=== PATIENT | male | born 1955 | race Caucasian/White ===

== ENCOUNTER 2017-03-16 00:03 | Emergency (ER) | payer OTHER ==
[~2017-03-16 00:03] MED LIST: AMLO10 PO; ASPI81TA82 PO; CLON-481 PO; CLOP75 PO; EXEN5PEN SQ; LABE100T2 PO; LISI40TA PO; PAXI20TA26 PO; PREV30CA36 PO; ROSU20 PO
--- NOTE | 2017-03-16 00:24 | PD ---
HPI Chief Complaint: Code Blue Time Seen by Provider: 00:10 Travel History International Travel<30 days: No Contact w/Intl Traveler<30days: No Traveled to known affect area: No History of Present Illness HPI The patient is a 61-year-old male who presents to the emergency department via EMS as a CODE BLUE. According to EMS the patient's was at home, her the patient's CPAP machine alarming and noticed that the patient was not breathing. She called fire rescue and they arrived the patient was in pulseless otological activity. EMS states the patient's downtime has been between 35-40 minutes. The patient's initial rhythm was PA and he has been in PA despite CPR and 4 rounds of epinephrine and one round of sodium bicarbonate prior to arrival. They did intubate the patient in the field with a 7.5 endotracheal tube. Upon arrival the patient is being bagged via bag valve ventilation and endotracheal tube, has no pulse, and is not responding to verbal commands or withdrawing to pain. PFSH Past Medical History Arthritis: No Asthma: No Heart Rhythm Problems: No Cardiovascular Problems: Yes High Cholesterol: Yes Chest Pain: No Congestive Heart Failure: No COPD: No Cerebrovascular Accident: Yes (new dx this visit) Diabetes: Yes GERD: Yes (prevacid) Genitourinary: No Hiatal Hernia: No Kidney Stones: No Musculoskeletal: No Neurologic: Yes Reproductive: No Respiratory: No Migraines: No Myocardial Infarction: Yes Renal Failure: No Seizures: No Sleep Apnea: Yes (wears c-pap @ home) Ulcer: No Social History Alcohol Use: Yes (2X/WK) Tobacco Use: No Substance Use: No Allergies-Medications (Allergen,Severity, Reaction): Coded Allergies: metformin (Unverified Allergy, Severe, Rash, 11/06/16) Reported Meds & Prescriptions Reported Meds & Active Scripts Active Reported Plavix (Clopidogrel Bisulfate) 75 Mg Tab 75 Mg PO DAILY [place]etta 5 Mcg/Dose Prefilled Pen (Exenatide) 5 Mcg/0.02 Ml Inj 5 Mcg SQ BIDAC FOR SUBCUTANEOUS INJECTION Aspir-81 (Aspirin) 81 Mg Tab 81 Mg PO DAILY Paxil (Paroxetine HCl) 20 Mg Tab 20 Mg PO BID Prinivil (Lisinopril) 40 Mg Tab 40 Mg PO DAILY Norvasc (Amlodipine Besylate) 10 Mg Tab 10 Mg PO BID Crestor (Rosuvastatin Calcium) 20 Mg Tab 20 Mg PO DAILY Prevacid (Lansoprazole) 30 Mg Capcr 30 Mg PO DAILY Catapres (Clonidine HCl) 0.3 Mg Tab 0.3 Mg PO BID Labetalol Hcl (Labetalol HCl) 100 Mg Tab 100 Mg PO BID Review of Systems ROS Limitations: Clinical Condition, Intubated Except as stated in HPI: all other systems reviewed are Neg Physical Exam Exam Limitations: Clinical Condition Narrative GENERAL: 61-year-old male who is intubated, nonverbal, with no spontaneous respirations. No pulse. SKIN: Focused skin assessment: To the touch. HEAD: Atraumatic. Normocephalic. EYES: Pupils are 5 mm bilateral and fixed. Nonreactive. ENT: Endotracheal tube in place 7.5. Nasal trumpet in the left near. NECK: Trachea midline. No JVD. CARDIOVASCULAR: No pulse noted. RESPIRATORY: Bilateral breath sounds via bag valve ventilation via endotracheal tube. GASTROINTESTINAL: Abdomen soft, slightly distended. MUSCULOSKELETAL: No obvious deformities. No clubbing. No cyanosis. No edema. I in the right lower extremity. NEUROLOGICAL: GCS of 3 and intubated. PSYCHIATRIC: Unable to obtain. MDM Medical Decision Making Medical Screen Exam Complete: Yes Emergency Medical Condition: Yes Medical Record Reviewed: Yes Differential Diagnosis Differential diagnosis includes cardiopulmonary arrest, hyperkalemia, hypokalemia, hypoglycemia, hypothermia, cardiac tamponade, tension pneumothorax , pulmonary embolism. Narrative Course Upon arrival ACLS protocol was followed. CPR was instituted and the patient was administered 1 more milligram of epinephrine via IO. The patient was placed on cardiac telemetry monitoring and was bagged via bag valve ventilation and endotracheal tube. There were bilateral breath sounds noted via bag valve ventilation. After 2 minutes of CPR 1 round of epinephrine there was no pulse. Bedside ultrasound using a cardiac probe revealed no cardiac activity. The patient was pronounced at 12:07 AM. Critical Care Narrative Aggregate critical care time was 10 minutes. Time to perform other separately billable procedures was not included in the critical care time. My time did not include minutes spent treating any other patients simultaneously or on activities that did not directly contribute to the patient's treatment. The services I provided to this patient were to treat and/or prevent clinically significant deterioration that could result in: Cardiopulmonary arrest, aspiration, arrhythmia, . I provided critical care services requiring my management, as noted below: Chart data review, documentation time, medication orders and management, vital sign assessments/reviewing monitor data, ordering and reviewing lab tests, ordering and interpreting/reviewing x-rays and diagnostic studies, care of the patient and discussion of the patient with the admitting physicians. Procedures Procedure Narrative Bedside ultrasound with a cardiac probe was performed, there was no cardiac activity, the patient tolerated the procedure without difficulty and there was no complications. Diagnosis Primary Impression: Cardiopulmonary arrest Disposition: 20 Condition: Guillermo Woodall MD Mar 16, 2017 00:24
== END 2017-03-16 03:00 | disposition expired ==
LOC: NEPC 00:03
DX: I46.9 Cardiac arrest, cause unspecified (principal); E11.9 Type 2 diabetes mellitus without complications; K21.9 Gastro-esophageal reflux disease without esophagitis; I25.2 Old myocardial infarction; E78.00 Pure hypercholesterolemia, unspecified; Z79.02 Long term (current) use of antithrombotics/antiplatelets; Z86.73 Personal history of transient ischemic attack (TIA), and cerebral infarction without residual deficits; Z79.82 Long term (current) use of aspirin; Z79.899 Other long term (current) drug therapy
CPT/HCPCS: 31500; 92950